=== PATIENT | male | born 1965 | race Two or more races ===

== ENCOUNTER 2021-11-26 04:12 | Day surgery (SDC) | payer BC ==
[2021-11-20 14:44] VITALS: BMI 28.4
[2021-11-26 10:49] VITALS: TEMP 97.9
[2021-11-26 11:14] VITALS: BP 131/77; PULSE 66
== END 2021-11-26 11:30 | disposition home or self-care (01) ==
LOC: JASU-ENDO 04:12
PROVIDERS: ATTEND Internal Medicine Gastroenterology
PROC: 0DJD8ZZ Inspection of Lower Intestinal Tract, Via Natural or Artificial Opening Endoscopic (ICD-10-PCS; principal; 2021-11-26 09:45)
DX: Z12.11 Encounter for screening for malignant neoplasm of colon (principal); K57.30 Diverticulosis of large intestine without perforation or abscess without bleeding; K64.8 Other hemorrhoids